=== PATIENT | female | born 1995 | race Two or more races ===

== ENCOUNTER 2016-03-22 11:33 | Emergency (ER) | payer OTHER ==
[~2016-03-22] VITALS: Ht 170.2 cm; Wt 72.6 kg
[2016-03-22] MEDS ORDERED: IV NS 0.9% 1,000 ML ONE (11:58)
[2016-03-22] MEDS ORDERED: IV SET PRIMARY PUMP SET 1 EA INFUS.SET MC ONE (11:58)
[2016-03-22] MEDS ORDERED: IV NS 0.9% 1,000 ML BAG IV ONE (12:00)
[2016-03-22 12:10] LABS: BASOPHILS % (AUTO) 0.6 % (0.0-2.0); DIFF TOTAL % 100 %; EOSINOPHILS % (AUTO) 0.2 % (0.0-6.0); HEMATOCRIT 40 % (33-45); HEMOGLOBIN 13.1 g/dL (11.5-14.8); LYMPHOCYTES # (AUTO) 1.7 /CMM (0.8-4.8); LYMPHOCYTES % (AUTO) 22.5 % (20.0-44.0); MEAN CORPUSCULAR HEMOGLOBIN 30 PG (26.0-33.0); MEAN CORPUSCULAR HGB CONC 33 g/dl (31.0-36.0); MEAN CORPUSCULAR VOLUME 91 fL (82-100); MONOCYTES # (AUTO) 0.4 /CMM (0.1-1.30); MONOCYTES % (AUTO) 4.9 % (2.0-12.0); NEUTROPHILS # (AUTO) 5.5 /CMM (1.8-8.9); NEUTROPHILS % (AUTO) 71.8 % (43.0-81.0); PLATELET COUNT (AUTO) 216 /CMM (150-450); RED BLOOD CELL COUNT(AUTO) 4.34 MIL/uL (4.0-5.2); WHITE BLOOD COUNT (AUTO) 7.6 K/uL (4.3-11.0)
[2016-03-22 12:20] LABS: CALCIUM, SERUM 8.4 mg/dL (8.5-10.1); CREATININE 0.9 mg/dL (0.6-1.3); POTASSIUM 3.6 mmol/L (3.5-5.1)
[2016-03-22 12:26] LABS: ALBUMIN 3.5 g/dL (3.4-5.0); BILIRUBIN,DIRECT 0.1 mg/dL (0.0-0.2); BILIRUBIN,TOTAL 0.5 mg/dL (0.2-1.0); INDIRECT BILIRUBIN 0.4 mg/dL (0.0-1.1); TOTAL PROTEIN, SERUM 6.8 g/dL (6.4-8.2)
[2016-03-22 12:34] LABS: INR 0.92 (0.87-1.13); PROTHROMBIN TIME 9.7 SECS (9.5-12.7)
[2016-03-22] MEDS ORDERED: IV NS 0.9% 250 ML IV ONE (12:46)
[2016-03-22] MEDS ORDERED: IOHEXOL-300 100 ML VIAL IV ONE (12:46)
[2016-03-22] MEDS ORDERED: CT SWABBABLE VALVE TRANS SET 1 EA INFUS.SET MC ONE (12:46)
[2016-03-22 13:41] VITALS: BP 126/71
== END 2016-03-22 13:42 | disposition home or self-care (01) ==
LOC: ER 11:35
DX: K62.5 Hemorrhage of anus and rectum (principal); Z91.011 Allergy to milk products
CPT/HCPCS: 36415; 74160; 80048; 80076; 82272; 83690; 84703; 85025; 85730; 86850; 96360; 99285; A4606; J7030; J7050; Q9967; Z7610

== ENCOUNTER 2023-09-07 22:50 | Emergency (ER) | payer MEDICAID, OTHER | END 2023-09-07 23:55 | disposition left against medical advice (07) | LOC: ER 22:55 | DX: R21 Rash and other nonspecific skin eruption (principal); Z53.21 Procedure and treatment not carried out due to patient leaving prior to being seen by health care provider ==